=== PATIENT | male | born 1985 | race Caucasian/White ===

== ENCOUNTER 2022-06-14 17:33 | Emergency (ER) | payer MEDICAID ==
[~2022-06-14] VITALS: Ht 182.9 cm; Wt 81.6 kg
--- NOTE | 2022-06-14 17:35 | NUR ---
Patient triaged on ambulance gurney. VSS and patient appears in no acute distress at this time. Accompanied by EMT's , awaiting available bed, and MD notified of need for MSE.
[2022-06-14 17:41] VITALS: BP_SYST 118
--- NOTE | 2022-06-14 18:10 | NUR ---
Placed in room 03 . Placed on monitoring manager, blood pressure machine and pulse oximeter. To gown for exam. Side rails up. Report given to MARIS ALEXIS.
--- NOTE | 2022-06-14 18:23 | NUR ---
ER at bedside examining patient.
[2022-06-14] MEDS ORDERED: LORazepam 2 MG/ML VIAL IVP ONE (18:30)
--- NOTE | 2022-06-14 18:30 | NUR ---
PT BIB [facility]ULANCE[facility]. PT IS A&Ox4 AND ABLE TO MAKE NEEDS KNOW. PT STATES HAD A SEZIURE WITH A NEW ONSET OF LOCK JAW. PT DENIES PAIN AT THIS TIME. PT LAYING ON RIGHT SIDE, SAFETY PRECAUTIONS IN PLACE.
[2022-06-14 19:34] LABS: BASOPHILS % (AUTO) 0.4 % (0.0-2.0); EOSINOPHILS # (AUTO) 0.3 K/uL (0.0-0.4); EOSINOPHILS % (AUTO) 5.7 % (0.0-4.0); HEMATOCRIT 39.3 % (36-54); HEMOGLOBIN 13.4 g/dL (14.0-18.0); LYMPHOCYTES # (AUTO) 1.2 K/uL (1.0-5.5); LYMPHOCYTES % (AUTO) 20.9 % (20.5-51.5); MEAN CORPUSCULAR HEMOGLOBIN 31 pg (27-31); MEAN CORPUSCULAR HGB CONC 34 % (32-36); MEAN CORPUSCULAR VOLUME 92 fL (79.0-98.0); MONOCYTES # (AUTO) 0.5 K/uL (0.0-1.0); MONOCYTES % (AUTO) 9.2 % (1.7-9.3); NEUTROPHILS # (AUTO) 3.7 K/uL (1.8-7.7); NEUTROPHILS % (AUTO) 63.8 % (40.0-70.0); PLATELET COUNT (AUTO) 247 K/uL (130-430); RED BLOOD CELL COUNT(AUTO) 4.28 MIL/uL (4.2-6.2); RED CELL DISTRIBUTION WIDTH 14.3 % (9.0-15.0); WHITE BLOOD COUNT (AUTO) 5.8 K/uL (4.8-10.8)
--- NOTE | 2022-06-14 19:37 | NUR ---
PT STABLE. PT ENDORSED TO MARIS FERNANDEZ
[2022-06-14 19:41] LABS: CALCIUM 9.1 mg/dL (8.4-11.0); CREATININE 0.79 mg/dL (0.55-1.30)
[2022-06-14 19:47] LABS: ALBUMIN 3.2 g/dL (3.4-4.8); PHENYTOIN (DILANTIN) 4.2 ug/mL (10.0-20.0); TOTAL BILIRUBIN 0.1 mg/dL (0.0-1.0)
[2022-06-14] MEDS ORDERED: PHENYTOIN 100 MG CAPSULE PO ONE (20:15)
[2022-06-14] MEDS ORDERED: PHENYTOIN 100 MG CAPSULE ONE (20:16)
[2022-06-14 20:26] VITALS: BP_SYST 116
--- NOTE | 2022-06-14 20:27 | NUR ---
Patient given written and verbal discharge instructions and verbalizes understanding. ER MD discussed with patient the results and treatment provided. Patient in stable condition. ID arm band removed. IV catheter removed intact and dressing applied, no active bleeding. Patient educated on pain management and to follow up with PMD. Opportunity for questions provided and answered. Medication side effect fact sheet provided. 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
== END 2022-06-14 20:26 | disposition home or self-care (01) ==
LOC: SED 17:33
DX: R56.9 Unspecified convulsions (principal); R51.9 Headache, unspecified; Z79.899 Other long term (current) drug therapy
CPT/HCPCS: 99283; 96374; 80053; 80185; 80164; 85025; 36415; J2060